=== PATIENT | female | born 1980 | race African-American/Black ===

== ENCOUNTER 2018-06-15 10:01 | Emergency (ER) | payer OTHER ==
[~2018-06-15] VITALS: Ht 172.7 cm; Wt 124.3 kg
[2018-06-15] MEDS ORDERED: CHLORTHALIDONE25 MG PO (10:05)
[2018-06-15] MEDS ORDERED: NP THYROID15 MG PO (10:06)
[2018-06-15] MEDS ORDERED: IBUPROFEN 600600 M1 PO (11:09)
[2018-06-15] MEDS ORDERED: NORCO 5-325 TA1 EACH PO (11:09)
[2018-06-15 11:49] VITALS: BP 140/86
== END 2018-06-15 11:47 | disposition home or self-care (01) ==
LOC: ER 10:01
DX: S93.492A Sprain of other ligament of left ankle, initial encounter (principal); I10 Essential (primary) hypertension; G43.909 Migraine, unspecified, not intractable, without status migrainosus; E03.9 Hypothyroidism, unspecified; Z88.0 Allergy status to penicillin; W22.8XXA Striking against or struck by other objects, initial encounter; Y92.009 Unspecified place in unspecified non-institutional (private) residence as the place of occurrence of the external cause; Y93.89 Activity, other specified; Y99.8 Other external cause status

== ENCOUNTER 2018-07-03 18:57 | Emergency (ER) | payer OTHER ==
[~2018-07-03] VITALS: Ht 172.7 cm; Wt 124.3 kg
[~2018-07-03 18:57] MED LIST: CHLORTHALIDONE25 MG PO; IBUPROFEN 600600 M1 PO; NORCO 5-325 TA1 EACH PO; NP THYROID15 MG PO
[2018-07-03] MEDS ORDERED: TROKENDI XR50 MG PO (21:39)
[2018-07-03] MEDS ORDERED: IMITREX 25 MG T25 M1 PO (21:40)
[2018-07-03 23:38] VITALS: BP 120/75
== END 2018-07-03 23:39 | disposition home or self-care (01) ==
LOC: ER 18:57
DX: R51 Headache (principal); R42 Dizziness and giddiness; H53.8 Other visual disturbances; I10 Essential (primary) hypertension; E03.9 Hypothyroidism, unspecified; Z88.0 Allergy status to penicillin